=== PATIENT | female | born 1985 | race African-American/Black ===

== ENCOUNTER 2021-03-11 06:47 | Inpatient (IN) | payer OTHER ==
[~2021-03-11] VITALS: Ht 165.1 cm; Wt 109.8 kg
[2021-03-11] MEDS ORDERED: PRENATAL TABLE1 EAC1 PO (07:12)
[2021-03-11] MEDS ORDERED: CHILDREN'S ASPI81 MG PO (07:13)
[2021-03-12] MEDS ORDERED: DICLEGIS DR 101 EACH (11:28)
== END 2021-03-13 16:20 | disposition home or self-care (01) | DRG 807 ==
LOC: LDR 06:47 → OB/GYN 06:47
PROVIDERS: ADMIT Obstetrics & Gynecology; ATTEND Obstetrics & Gynecology
PROC: 10E0XZZ Delivery of Products of Conception, External Approach (ICD-10-PCS; principal; 2021-03-11)
PROC: 4A1HXFZ Monitoring of Products of Conception, Cardiac Rhythm, External Approach (ICD-10-PCS; 2021-03-11)
DX: O60.12X0 Preterm labor second trimester with preterm delivery second trimester, not applicable or unspecified (principal); Z37.0 Single live birth; Z3A.26 26 weeks gestation of pregnancy; Z20.822 Contact with and (suspected) exposure to COVID-19

== ENCOUNTER 2021-06-21 06:50 | Outpatient (CLI) | payer OTHER ==
[~2021-06-21 06:50] MED LIST: CHILDREN'S ASPI81 MG PO; DICLEGIS DR 101 EACH; PRENATAL TABLE1 EAC1 PO
== END 2021-06-21 06:51 | disposition home or self-care (01) ==
LOC: LAB 06:50
PROVIDERS: ATTEND Pediatrics
DX: R05 Cough (principal); Z03.818 Encounter for observation for suspected exposure to other biological agents ruled out; R06.02 Shortness of breath

== ENCOUNTER 2021-06-25 16:19 | Outpatient (CLI) | payer OTHER | END 2021-06-25 16:22 | disposition home or self-care (01) | LOC: LAB 16:19 | PROVIDERS: ATTEND Pediatrics Neonatal-Perinatal Medicine | DX: R05 Cough (principal); Z03.818 Encounter for observation for suspected exposure to other biological agents ruled out; R06.02 Shortness of breath ==